=== PATIENT | male | born 1965 | race Caucasian/White ===

== ENCOUNTER 2017-12-21 10:11 | Day surgery (SDC) | payer BC ==
[~2017-12-21 10:11] MED LIST: NACL 0.9% 1000 ML 1,000 ML IV SCH; XYLOCAINE MPF 2% ONE
--- NOTE | 2017-12-21 10:39 | Short Stay Summary ---
Short Stay Documentation Date of service: 12/21/17 Narrative H&P: Colonoscopy for average risk colon screening. Infrequent minor rectal bleeding noted. Additional complaints of postprandial fullness and occasional vomiting for which patient declined to have EGD. - History Principal diagnosis: colon screening, incidental minor rectal bleeding H&P: obtained from office - Allergies and Medications Current Medications: Allergies No Known Allergies Allergy (Verified 12/16/17 10:16) Active Medications Sodium Chloride (Nacl 0.9% 1000 Ml) 1,000 mls @ 50 mls/hr IV DIRECT AIDEN - Hospital course Hospital course: Uneventful colonoscopy - Disposition Condition at discharge: Good Disposition: DC-01 TO HOME OR SELFCARE - Discharge Diagnoses (1) Encounter for screening colonoscopy for [id number] patient Status: Acute (2) Rectal bleeding Status: Acute Comment: incidental, minor (3) Diverticulosis Status: Acute (4) Internal hemorrhoids Status: Acute (5) Mucosal abnormality of colon Status: Acute Comment: prominent fold sigmoid colon Short Stay Discharge Plan Activity: other (no driving today) Diet: other (may resume usual diet) Additional Instructions: 1. Patient to call for biopsy results in 14 days if he has not heard from us by then. Follow up with: PASTORA SONG MD [Primary Care Provider] - 7 Days
--- NOTE | 2017-12-21 10:43 | Anesthesia Day of Surgery ---
Anesthesia Day of Surgery - Day of Surgery Patient Examined: Yes Patient H&P Reviewed: Yes Patient is NPO: Yes Beta Blockers: No
--- NOTE | 2017-12-21 10:44 | Anesthesia Consultation ---
Anesthesia Consult and Med Hx - Airway Anesthetic Teeth Evaluation: Good ROM Head & Neck: Adequate Mental/Hyoid Distance: Adequate Mallampati Class: Class III Intubation Access Assessment: Probably Good - Pulmonary Exam CTA: Yes - Cardiac Exam Cardiac Exam: No Murmur - Pre-Operative Health Status ASA Pre-Surgery Classification: ASA3 Proposed Anesthetic Plan: MAC - Pulmonary Hx Smoking: No Hx Asthma: No Hx Respiratory Symptoms: No SOB: No COPD: No Home Oxygen Therapy: No Hx Pneumonia: No Hx Sleep Apnea: No - Cardiovascular System Hx Hypertension: Yes Hx Coronary Artery Disease: No Hx Heart Attack/AMI: No Hx Angina: No Hx Percutaneous Transluminal Coronary Angioplasty (PTCA): No Hx Cardia Arrhythmia: No Hx Pacemaker: No Hx Internal Defibrillator: No Hx Valvular Heart Disease: No - Other Systems Hx Obesity: Yes
[2017-12-21] MEDS ORDERED: DIPRIVAN 10 MG/ML IV ONE ×2 (10:49→11:43)
[2017-12-21] MEDS ORDERED: VERSED ONE (10:49)
[2017-12-21] MEDS ORDERED: WATER FOR IRRIG STERILE IR ONE (11:02)
--- NOTE | 2017-12-21 11:50 | Operative Report ---
Operative Report Operative Report: Date: 12/21/2017 Preprocedure diagnosis: Average risk colon screening, incidental minor rectal bleeding also noted Postprocedure diagnosis: Diverticulosis coli, internal hemorrhoids, prominent mucosal fold sigmoid colon likely inflammatory rather than neoplastic Procedure: Colonoscopy with biopsy Medication: Monitored anesthesia care Estimated blood loss: Less than 1 mL Complications: None evident Procedure description: The indications, techniques, potential complications and alternative methods of diagnosis, had been discussed with him in detail prior to the date of the exam and he had been provided with educational handouts at that time. These were all carefully reviewed with him again on the morning of the exam in the presence of the remainder of the endoscopy team. His questions were encouraged and answered to his satisfaction, and he granted consent for colonoscopy. He was placed in the left lateral decubitus position and was medicated by anesthesia services. The anal sphincter was digitally dilated. The digital exam was unremarkable. The tip of a Guide video colonoscope was inserted through the anal sphincter and into the rectal vault. It was advanced proximally under continuous visualization of the lumen to the sigmoid, whereupon the endoscope failed in terms of photo capture and suctioning. The instrument was removed. A replacement colonoscope was inserted through the anal sphincter and into the rectal vault, and was then advanced proximally under continuous visualization of the lumen to the cecum without difficulty. The prep was adequate. No pathology was found in the cecum. The appendiceal orifice and ileocecal valve were identified and both appeared normal. From the cecum, the instrument was slowly withdrawn, with careful circumferential examination of the mucosa. There were diverticula scattered throughout the ascending colon, hepatic flexure , transverse colon, splenic flexure and descending colon. No polyps or other pathology were seen in these areas. Diverticula were more confluent in the sigmoid colon. In the mid sigmoid colon a prominent erythematous fold suggesting possible polyp was noted. See photograph. Upon compression with a closed forceps, however, the lesion was soft, movable and more resembled an erythematous fold rather than neoplasia. Biopsies were obtained from which there was minimal bleeding. At this point he began coughing and/or retching and I felt it is advisable to conclude the procedure without undue delay. Therefore no additional biopsies were obtained from the fold and the adjacent mucosa was not tattooed. Rather, the instrument was slowly withdrawn with careful circumferential examination of the remainder of the mucosa. Additional diverticula were seen but no other prominent folds and no polyps were found. Retroflexion in the rectum revealed internal hemorrhoids. The instrument was straightened and withdrawn. The procedure was well tolerated. Postprocedure he was monitored in the recovery area of the GI lab to ensure stability prior to his release. See the outpatient record for details regarding instructions to patient, medications and plans for follow-up. Endoscopic assessment: 1. Prominent mucosal fold, sigmoid colon, likely inflammatory rather than neoplastic. Biopsied. 2. Pandiverticulosis, most prominent in sigmoid colon. 3. Internal hemorrhoids. Rashaad Ott M.D. Dictated 12/21/2017 at 11:41 AM
[2017-12-21 12:03] VITALS: BP 138/84
== END 2017-12-21 10:12 | disposition home or self-care (01) ==
LOC: GIO 10:11
PROVIDERS: ATTEND Internal Medicine Gastroenterology
DX: K62.5 Hemorrhage of anus and rectum (principal); K63.89 Other specified diseases of intestine; K57.30 Diverticulosis of large intestine without perforation or abscess without bleeding; I10 Essential (primary) hypertension; K64.8 Other hemorrhoids; E66.9 Obesity, unspecified; Z68.43 Body mass index [BMI] 50.0-59.9, adult
CPT/HCPCS: 45380; 88305; J2250; J2704; J7030